=== PATIENT | male | born 1945 | race Hispanic/Latino ===

== ENCOUNTER 2018-02-24 10:28 | Day surgery (SDC) | payer MEDICARE ==
[~2018-02-24 10:28] MED LIST: ANCEF/STERILE WATER 2 GM/20 ML 2 GM/20 ML SYRINGE IV NR; NACL 0.9% 1000 ML 1,000 ML IV SCH
[2018-02-24 11:58] LABS: Basophils # (Auto) 0.1 K/mm3 (0.0-0.1); Basophils % (Auto) 1.4 % (0.0-1.8); Eosinophils # (Auto) 0.8 K/mm3 (0.0-0.4); Eosinophils % (Auto) 9.8 % (0.0-4.3); Hematocrit 34.2 % (35.5-45.6); Hemoglobin 12.1 gm/dl (11.8-15.2); Lymphocytes # (Auto) 1.2 K/mm3 (1.2-5.4); Lymphocytes % (Auto) 15.6 % (13.4-35.0); Mean Corpuscular HGB Conc 36 % (32-34); Mean Corpuscular Hemoglobin 32 pg (28-32); Mean Corpuscular Volume 91 fl (84-94); Monocytes # (Auto) 0.6 K/mm3 (0.0-0.8); Platelet Count 255 K/mm3 (140-440); Red Blood Count 3.77 M/mm3 (3.65-5.03); Red Cell Distribution Width 15.6 % (13.2-15.2)
[2018-02-24 12:02] LABS: INR 0.99 (0.87-1.13)
[2018-02-24 12:03] LABS: Partial Thromboplastin Time 31.7 Sec. (24.2-36.6)
[2018-02-24] MEDS ORDERED: SUBLIMAZE ONE (14:22)
[2018-02-24] MEDS ORDERED: VERSED ONE (14:22)
[2018-02-24] MEDS ORDERED: NACL 0.9% 500 ML 500 ML ONE (14:24)
[2018-02-24] MEDS ORDERED: HEPARIN 10,000 UNITS/10 ML ONE (14:24)
[2018-02-24] MEDS ORDERED: XYLOCAINE 2% INFILTRATI ONE (14:24)
[2018-02-24] MEDS ORDERED: HEPARIN/NS 5000 UNIT/500ML(CATH LAB) 1,000 ML IR ONE (14:24)
[2018-02-24] MEDS ORDERED: ANCEF/STERILE WATER 2 GM/20 ML 0 GM/0 ML SYRINGE IV ONE (14:24)
--- NOTE | 2018-02-24 16:52 | Short Stay Summary ---
Short Stay Documentation Date of service: 02/24/18 - History Principal diagnosis: right common iliac artery aneurysm H&P: obtained from office - Allergies and Medications Current Medications: Allergies EGG BASED SERUM Allergy (Uncoded 02/24/18 10:29) Hives,SWELLING,SHORT OF BREATH Home Medications Medication Instructions Recorded Confirmed Last Taken Type Oxycodone HCl/Acetaminophen 1 each PO Q6HR PRN #20 tablet 02/24/18 Unknown Rx [Percocet 10/325 mg] Active Medications Cefazolin Sodium (Ancef/Sterile Water 2 Gm/20 Ml) 2 gm in 20 mls @ 80 mls/hr IV PREOP NR; Protocol Stop: 02/24/18 23:59 Sodium Chloride (Nacl 0.9% 1000 Ml) 1,000 mls @ 42 mls/hr IV DIRECT MUMTAZ - Brief post op/procedure progress note Date of procedure: 02/24/18 Pre-op diagnosis: right common iliac artery aneurysm. Post-op diagnosis: same Procedure: Diagnostic angiography Anesthesia: local Surgeon: LYNN SNIDER Estimated blood loss: minimal Pathology: none Condition: stable - Disposition Condition at discharge: Good Disposition: DC-01 TO HOME OR SELFCARE Short Stay Discharge Plan Activity: advance as tolerated Weight Bearing Status: Weight Bear as Tolerated Diet: regular Wound: keep clean and dry, per your surgeon's advice Follow up with: ESSENCE GEE MD [Primary Care Provider] - 7 Days Forms: Post Arteriogram Instruct Prescriptions: Oxycodone HCl/Acetaminophen [Percocet 10/325 mg] 1 each PO Q6HR PRN #20 tablet PRN Reason: Pain
--- NOTE | 2018-02-24 16:58 | Operative Report ---
Operative Report Operative Report: Exam: Pelvic angiography and right lower extremity angiography Clinical indication: With a history of prior endovascular aortic aneurysm repair with development of rapid growth in right common iliac artery aneurysm demonstrated on ultrasound Date: 02/24/2018 Procedure: Following an expiration of the risks, benefits and alternatives; written informed consent was obtained. The patient was brought the angiographic suite and placed in supine position on the examination table. Initial ultrasound evaluation of his groin demonstrated a patent right common femoral artery. The patient's right groin was prepped and draped in usual sterile fashion. 1% lidocaine was used for anesthesia. Under ultrasound guidance, the right common femoral artery was cannulated with a 7 cm 21-gauge needle. A 0.018 guidewire was advanced centrally. The needle was removed and a micro-sheath placed. The 0.018 guidewire was exchanged for a 0.035 guidewire and the micro-sheath exchanged for a 5 [place] vascular sheath. The 5 [place] Omni flush catheter was advanced over the guidewire and advanced through the right limb of the previously placed Graft. Contrast was injected through the catheter which demonstrated prompt opacification of the right common iliac artery aneurysm. The origin of the right internal iliac artery was not well identified and multiple obliquities were obtained with additional angiography. Ultimately, an obliquity was obtained which demonstrates origin of the right internal iliac artery. There is greater than 2 cm aneurysmal dilatation of the internal iliac artery is well. The patient's previously placed a stent graft has a lee bottom distally. At this point, the catheters, guidewires and she's were removed and hemostasis achieved using an Angio-Seal arterial closure device. A sterile dressing was then applied. The patient tolerated the procedure well. There were no immediate post procedure complications. Conscious sedation was performed under the guidance of radiologic nursing. Continuous cardiopulmonary monitoring was utilized. Impression: 1) Pelvic angiography and right lower extremity angiography demonstrating aneurysm of the common iliac artery on the right. Additionally and unexpectedly, there is aneurysmal dilatation of the internal iliac artery. The patient will be scheduled for a CTA of the abdomen and pelvis for anatomic localization and scheduled for placement of a bifurcated stent/graft preserved flow into both the external and internal iliac arteries.
[2018-02-24 17:43] VITALS: BP 160/54
== END 2018-02-24 18:07 | disposition home or self-care (01) ==
LOC: CATHLABREC 10:28
PROVIDERS: ATTEND Radiology Diagnostic Radiology
DX: I72.4 Aneurysm of artery of lower extremity (principal); N40.0 Benign prostatic hyperplasia without lower urinary tract symptoms; E78.00 Pure hypercholesterolemia, unspecified; I12.9 Hypertensive chronic kidney disease with stage 1 through stage 4 chronic kidney disease, or unspecified chronic kidney disease; N18.3 Chronic kidney disease, stage 3 (moderate); M19.90 Unspecified osteoarthritis, unspecified site; F41.9 Anxiety disorder, unspecified; M10.9 Gout, unspecified; Z79.01 Long term (current) use of anticoagulants; Z91.012 Allergy to eggs; Z98.49 Cataract extraction status, unspecified eye; Z85.820 Personal history of malignant melanoma of skin; Z87.891 Personal history of nicotine dependence; Z85.46 Personal history of malignant neoplasm of prostate; Z86.73 Personal history of transient ischemic attack (TIA), and cerebral infarction without residual deficits; Z98.890 Other specified postprocedural states
CPT/HCPCS: 36245; 36415; 75710; 80048; 85025; 85610; 85730; 99156; 99157; C1760; C1887; J1644; J2250; J3010; J7040; 76937; J0690; Q9967

== ENCOUNTER 2018-04-19 09:01 | Observation (INO) | payer MEDICARE ==
[~2018-04-19 09:01] MED LIST changes: -NACL 0.9% 1000 ML 1,000 ML IV SCH
[2018-04-19 09:59] LABS: Basophils # (Auto) 0.1 K/mm3 (0.0-0.1); Eosinophils # (Auto) 0.8 K/mm3 (0.0-0.4); Eosinophils % (Auto) 10.3 % (0.0-4.3); Hematocrit 34.6 % (35.5-45.6); Hemoglobin 11.8 gm/dl (11.8-15.2); Lymphocytes # (Auto) 1.2 K/mm3 (1.2-5.4); Lymphocytes % (Auto) 15.2 % (13.4-35.0); Mean Corpuscular HGB Conc 34 % (32-34); Mean Corpuscular Hemoglobin 31 pg (28-32); Mean Corpuscular Volume 90 fl (84-94); Monocytes # (Auto) 0.6 K/mm3 (0.0-0.8); Monocytes % (Auto) 7.6 % (0.0-7.3); Platelet Count 260 K/mm3 (140-440); Red Blood Count 3.86 M/mm3 (3.65-5.03); Red Cell Distribution Width 15.6 % (13.2-15.2)
[2018-04-19] MEDS: NACL 0.9% 1000 ML 1,000 ML IV SCH (10:08)
[2018-04-19 10:11] LABS: Calcium 9.7 mg/dL (8.4-10.2); Partial Thromboplastin Time 33.5 Sec. (24.2-36.6)
[2018-04-19] MEDS ORDERED: HEPARIN/NS 5000 UNIT/500ML(CATH LAB) 1,000 ML IR ONE (10:11)
[2018-04-19] MEDS ORDERED: HEPARIN 10,000 UNITS/10 ML ONE (10:11)
[2018-04-19] MEDS ORDERED: XYLOCAINE 2% INFILTRATI ONE (10:11)
[2018-04-19] MEDS ORDERED: VERSED ONE (10:40)
[2018-04-19] MEDS ORDERED: SUBLIMAZE ONE (10:41)
--- NOTE | 2018-04-19 11:57 | Short Stay Summary ---
Short Stay Documentation Date of service: 04/19/18 - History Principal diagnosis: right renal artery stenosis, malignant hypertension H&P: obtained from office - Allergies and Medications Current Medications: Allergies EGG BASED SERUM Allergy (Uncoded 02/24/18 10:29) Hives,SWELLING,SHORT OF BREATH Home Medications Medication Instructions Recorded Confirmed Last Taken Type Allopurinol 100 mg PO DAILY 04/19/18 04/19/18 04/18/18 History 100mg Atenolol 50 mg PO DAILY 04/19/18 04/19/18 04/18/18 History 50mg Atorvastatin Calcium 20 mg PO QHS 04/19/18 04/19/18 04/18/18 History 20mg Fenofibrate 160 mg PO DAILY 04/19/18 04/19/18 04/18/18 History 160mg Furosemide [Lasix TAB] 20 mg PO DAILY 04/19/18 04/19/18 04/18/18 History 20mg Metoprolol Succinate 50 mg PO DAILY 04/19/18 04/19/18 04/18/18 History 50mg amLODIPine [Norvasc] 5 mg PO DAILY 04/19/18 04/19/18 04/18/18 History 5mg Active Medications Cefazolin Sodium (Ancef/Sterile Water 2 Gm/20 Ml) 2 gm in 20 mls @ 80 mls/hr IV PREOP NR; Protocol Stop: 04/19/18 23:59 Sodium Chloride (Nacl 0.9% 1000 Ml) 1,000 mls @ 42 mls/hr IV DIRECT MUMTAZ Last Admin: 04/19/18 10:08 Dose: 42 mls/hr - Brief post op/procedure progress note Date of procedure: 04/19/18 Pre-op diagnosis: right renal artery stenosis Post-op diagnosis: same Procedure: Right renal artery stent graft placement Anesthesia: local Surgeon: LYNN SNIDER Estimated blood loss: minimal Pathology: none Condition: stable - Disposition Condition at discharge: Good Disposition: DC/TX-02 [id number]-TRM GEN HOSP IP Short Stay Discharge Plan Activity: advance as tolerated Weight Bearing Status: Weight Bear as Tolerated Diet: regular Wound: keep clean and dry, per your surgeon's advice Follow up with: ESSENCE GEE MD [Primary Care Provider] - 7 Days
--- NOTE | 2018-04-19 12:04 | Operative Report ---
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 The patient was brought to the geographic suite placed in supine position on the examination table. Under ultrasound evaluation of the right groin and illustrated a patent right common femoral artery. The patient's right groin was prepped and draped in the usual sterile fashion. 1% lidocaine was used for anesthesia. Under ultrasound guidance the right common femoral artery was cannulated with a 7 cm 21-gauge needle. A 0.018 guidewire was advanced centrally. The needle was removed and a micro-sheath placed. The 0.01 a guidewire was exchanged for 0.035 guidewire and following serial dilation, a 5 Swiss sheath placed in the groin. A 5 Swiss pigtail plus catheter was then advanced over the guidewire to the suprarenal aorta. Angiography was performed using power injection which demonstrated atresia of the left renal artery and than 95% stenosis involving the right renal artery just distal to the ostium. The guidewire was advanced and the pigtail catheter removed. The 5 Swiss sheath was exchanged for a 7.45 cm sheath which was advanced to just below the level of the renal arteries. Given the high degree of stenosis, a variety of catheters were utilized in an attempt to cannulate the right renal artery, ultimately a sauce on the catheter and choice PT guidewire was used to cannulate the renal artery. The choice PT guidewire was exchanged for a 0.035 guidewire was advanced into a intralobar renal artery. Additional angiographic imaging was obtained to the aid of a 7 Swiss guide catheter. Pre-dilation of the stenosis was performed using a 4 mm x 20 mm balloon. Following dilation, a 6 mm x 1.9 cm [place] PBX stent was advanced across the lesion and deployed. The balloon was insufflated 15 [place] [address] the stent. Post stent placement imaging demonstrated reduction of the stenosis from 95% to less than 10% with brisk luminal flow from the aorta into the right renal artery. At this point, the catheters, guidewires and sheaths were removed and hemostasis achieved to the Angio-Seal arterial closure device. A compression dressing was also placed. The patient tolerated the procedure well. There were no immediate post procedure complications. Conscious sedation was performed under the guidance of radiologic nursing. Continuous cardiopulmonary monitoring was utilized. Impression: 1) Aortogram and selective renal angiogram demonstrating atresia of the left renal artery and a 95% stenosis involving the right renal artery just distal to its origin. 2) 2) Treatment of the right renal artery with angioplasty and placement of a stent graft as described with residual less than 10% stenosis.
--- NOTE | 2018-04-19 13:36 | History and Physical Report ---
History of Present Illness Chief complaint: My blood pressure gets high History of present illness: 72 YO Male with Obesity, Malignant Hypertension, LELA S/P Placement of renal artery stent admitted at the request of Dr. Soto for medical management. Pt seen and evaluated upon arrival to his room. Pt denies headache, CP, Fever, chills, NVD, Syncope, dizziness, vertigo, productive cough, or recent ill contacts. No reported nursing events. Past History Past Medical History: hypertension, other (LELA) Past Surgical History: Other (renal artery stent placement.) Social history: , lives with family. denies: smoking, alcohol abuse, prescription drug abuse Family history: hypertension Medications and Allergies Allergies Allergy/AdvReac Type Severity Reaction Status Date / Time EGG BASED SERUM Allergy Hives,SWELLING,SHORT Uncoded 02/24/18 10:29 OF BREATH Home Medications Medication Instructions Recorded Confirmed Last Taken Type Allopurinol 100 mg PO DAILY 04/19/18 04/19/18 04/18/18 History 100mg Atenolol 50 mg PO DAILY 04/19/18 04/19/18 04/18/18 History 50mg Atorvastatin Calcium 20 mg PO QHS 04/19/18 04/19/18 04/18/18 History 20mg Fenofibrate 160 mg PO DAILY 04/19/18 04/19/18 04/18/18 History 160mg Furosemide [Lasix TAB] 20 mg PO DAILY 04/19/18 04/19/18 04/18/18 History 20mg Metoprolol Succinate 50 mg PO DAILY 04/19/18 04/19/18 04/18/18 History 50mg amLODIPine [Norvasc] 5 mg PO DAILY 04/19/18 04/19/18 04/18/18 History 5mg Active Meds: Active Medications Cefazolin Sodium (Ancef/Sterile Water 2 Gm/20 Ml) 2 gm in 20 mls @ 80 mls/hr IV PREOP NR; Protocol Stop: 04/19/18 23:59 Sodium Chloride (Nacl 0.9% 1000 Ml) 1,000 mls @ 50 mls/hr IV DIRECT MUMTAZ Last Admin: 04/19/18 10:08 Dose: 42 mls/hr Review of Systems Constitutional: no weight loss, no weight gain, no fever, no chills Ears, nose, mouth and throat: no ear pain, no ear discharge, no tinnitis, no decreased hearing, no nose pain, no nasal discharge Cardiovascular: no chest pain, no orthopnea, no palpitations, no edema Respiratory: no cough, no cough with sputum, no excessive sputum Gastrointestinal: no abdominal pain, no nausea, no vomiting, no diarrhea, no change in bowel habits Genitourinary Male: no hematuria, no flank pain, no discharge, no urinary frequency, no urinary hesitancy Rectal: no pain, no incontinence, no hemorrhoids Musculoskeletal: no neck stiffness, no neck pain, no shooting arm pain, no hot joints, no morning stiffness Integumentary: no rash, no pruritis, no redness, no wounds, no boils, no bullae , no lesions, no depigmentation, no acne, no color changes Neurological: no paralysis, no weakness, no parathesias, no numbness, no tingling, no seizures, no syncope Psychiatric: no anxiety, no memory loss, no change in sleep habits, no sleep disturbances, no insomnia Endocrine: no cold intolerance, no heat intolerance, no polyphagia, no polyuria , no excessive sweating, no weight change, no proptosis Hematologic/Lymphatic: no easy bruising, no easy bleeding, no lymphadenopathy, no lymphedema Allergic/Immunologic: no urticaria, no allergic rhinitis, no wheezing, no persistent infections, no anaphylaxis, no angioedema Exam - Constitutional Vitals: Temp Pulse Resp BP Pulse Ox 97.6 F 62 20 178/81 97 04/19/18 12:05 04/19/18 13:00 04/19/18 13:00 04/19/18 13:00 04/19/18 13:00 General appearance: Present: no acute distress, well-nourished - EENT Eyes: Present: PERRL ENT: hearing intact, clear oral mucosa - Neck Neck: Present: supple, normal ROM - Respiratory Respiratory effort: normal Respiratory: bilateral: CTA - Cardiovascular Heart Sounds: Present: S1 & S2. Absent: rub, click - Extremities Extremities: pulses symmetrical, No edema Peripheral Pulses: within normal limits - Abdominal General gastrointestinal: Present: soft, non-tender, non-distended, normal bowel sounds Male genitourinary: Present: normal - Integumentary Integumentary: Present: clear, warm, dry - Musculoskeletal Musculoskeletal: gait normal, strength equal bilaterally - Psychiatric Psychiatric: appropriate mood/affect, intact judgment & insight - Neurologic Neurologic: CNII-XII intact, moves all extremities Results - Labs CBC & Chem 7: 04/19/18 09:50 04/19/18 09:50 Labs: Abnormal lab results 04/19/18 04/19/18 Range/Units 09:50 09:50 Hct 34.6 L (35.5-45.6) % RDW 15.6 H (13.2-15.2) % [place] % (Auto) 7.6 H (0.0-7.3) % Eos % (Auto) 10.3 H (0.0-4.3) % Eos # 0.8 H (0.0-0.4) K/mm3 BUN 23 H (9-20) mg/dL Glucose 116 H (75-100) mg/dL Assessment and Plan - Patient Problems (1) Renal artery stenosis Current Visit: Yes Status: Acute Plan to address problem: S/P Stent placement, Vascular surgery consulted, (2) Hypertension Current Visit: Yes Status: Acute Qualifiers: Hypertension type: essential hypertension Qualified Code(s): I10 - Essential (primary) hypertension Plan to address problem: monitor bp q shift, hydralazine prn. supportive care. (3) Obesity Current Visit: Yes Status: Acute Plan to address problem: Balanced diet, increased physical activity at discharge. (4) DVT prophylaxis Current Visit: Yes Status: Acute Plan to address problem: SCD to BLE while in bed.
[2018-04-19] MEDS ORDERED: TYLENOL PO PRN (13:37)
[2018-04-19] MEDS ORDERED: SODIUM CHLORIDE FLUSH SYRINGE 10 ML IV PRN (13:37)
[2018-04-19] MEDS ORDERED: ZOFRAN IV PRN (13:37)
[2018-04-19] MEDS ORDERED: PROVENTIL IH PRN (13:37)
[2018-04-19] MEDS ORDERED: CATAPRES PO PRN ×2 (14:44→14:47)
--- NOTE | 2018-04-19 15:05 | Progress Note ---
Assessment and Plan s/p right renal artery stent placement Hypertension Continue routine post op management. We will obtain a 12 lead ECG. Subjective Date of service: 04/19/18 Principal diagnosis: right renal artery stenosis, malignant hypertension Interval history: Patient is s/p right renal artery stent placement. He denies chest pain and shortness of breath. No distress noted. Objective Vital Signs Temp Pulse Resp BP BP Pulse Ox 04/19/18 15:00 97.9 F 57 L 18 178/77 97 04/19/18 14:51 97.9 F 58 L 20 189/152 97 04/19/18 14:30 57 L 20 125/71 95 04/19/18 14:00 56 L 18 139/61 97 04/19/18 13:30 58 L 18 171/61 97 04/19/18 13:00 62 20 178/81 97 04/19/18 12:45 64 20 177/63 98 04/19/18 12:33 64 20 147/69 95 04/19/18 12:10 60 18 174/65 96 04/19/18 12:05 97.6 F 58 L 20 190/69 94 04/19/18 10:41 98.1 F 62 16 182/67 99 - Physical Examination General: No Apparent Distress HEENT: Positive: PERRL Cardiac: Positive: Reg Rate and Rhythm Lungs: Positive: Decreased Breath Sounds Neuro: Positive: Grossly Intact Extremities: Absent: edema - Labs and Meds Coagulation 04/19/18 Range/Units 09:50 PT 13.7 (12.2-14.9) Sec. INR 1.00 (0.87-1.13) APTT 33.5 (24.2-36.6) Sec. CBC 04/19/18 Range/Units 09:50 WBC 7.9 (4.5-11.0) K/mm3 RBC 3.86 (3.65-5.03) M/mm3 Hgb 11.8 (11.8-15.2) gm/dl Hct 34.6 L (35.5-45.6) % Plt Count 260 (140-440) K/mm3 Lymph # 1.2 (1.2-5.4) K/mm3 [place] # 0.6 (0.0-0.8) K/mm3 Eos # 0.8 H (0.0-0.4) K/mm3 Baso # 0.1 (0.0-0.1) K/mm3 Comprehensive Metabolic Panel 04/19/18 Range/Units 09:50 Sodium 139 (137-145) mmol/L Potassium 4.3 (3.6-5.0) mmol/L Chloride 100.0 (98-107) mmol/L Carbon Dioxide 28 (22-30) mmol/L BUN 23 H (9-20) mg/dL Creatinine 1.3 (0.8-1.5) mg/dL Glucose 116 H (75-100) mg/dL Calcium 9.7 (8.4-10.2) mg/dL
[2018-04-19] MEDS ORDERED: APRESOLINE IV ONE (19:47)
[2018-04-19] MEDS ORDERED: APRESOLINE IV PRN (19:48)
[2018-04-19] MEDS: SODIUM CHLORIDE FLUSH SYRINGE 10 ML IV SCH (22:30)
[2018-04-20] MEDS: NACL 0.9% 1000 ML 1,000 ML IV SCH (03:30)
[2018-04-20] MEDS: SODIUM CHLORIDE FLUSH SYRINGE 10 ML IV SCH (09:26)
[2018-04-20] MEDS ORDERED: CATAPRES PO NR (09:56)
[2018-04-20] MEDS ORDERED: TENORMIN PO SCH (10:00)
[2018-04-20] MEDS ORDERED: TRICOR PO SCH (10:00)
[2018-04-20] MEDS ORDERED: ZYLOPRIM PO SCH (10:00)
[2018-04-20] MEDS ORDERED: NON-FORMULARY (Fenofibrate [Fenofibrate] 160 MG) PO SCH (10:00)
[2018-04-20] MEDS ORDERED: LASIX PO SCH (10:00)
[2018-04-20] MEDS ORDERED: TOPROL XL PO SCH (10:00)
[2018-04-20] MEDS ORDERED: NORVASC PO SCH (10:00)
--- NOTE | 2018-04-20 11:22 | Progress Note ---
Assessment and Plan s/p right renal artery stent placement Hypertension Continue routine post op management. Stable cardiac calle. Once discharged, patient advised to f/u with Dr Zambrano within 5-7 days. Subjective Date of service: 04/20/18 Principal diagnosis: right renal artery stenosis, malignant hypertension Interval history: Patient is resting in bed comfortably. He denies chest pain and shortness of breath. Objective Vital Signs Temp Pulse Pulse Resp BP BP Pulse Ox 04/20/18 10:11 100 04/20/18 10:00 66 04/20/18 09:25 63 189/79 04/20/18 07:39 97.8 F 63 20 189/79 97 04/20/18 07:37 94 04/20/18 02:17 97.6 F 65 16 154/59 94 04/20/18 01:54 61 16 97 04/19/18 22:29 61 186/80 04/19/18 21:46 97 04/19/18 19:35 97.6 F 61 16 186/82 96 04/19/18 15:00 97.9 F 57 L 18 178/77 97 04/19/18 14:51 97.9 F 58 L 20 189/152 97 04/19/18 14:30 57 L 20 125/71 95 04/19/18 14:00 56 L 18 139/61 97 04/19/18 13:30 58 L 18 171/61 97 04/19/18 13:00 62 20 178/81 97 04/19/18 12:45 64 20 177/63 98 04/19/18 12:33 64 20 147/69 95 04/19/18 12:10 60 18 174/65 96 04/19/18 12:05 97.6 F 58 L 20 190/69 94 - Physical Examination General: No Apparent Distress HEENT: Positive: PERRL Cardiac: Positive: Reg Rate and Rhythm Lungs: Positive: Decreased Breath Sounds Neuro: Positive: Grossly Intact Extremities: Absent: edema
[2018-04-20 15:02] VITALS: BP 146/60
--- NOTE | 2018-04-20 15:16 | Progress Note ---
Assessment and Plan Pt s/p R renal artery angioplasty with stent placement. Pt doing well today, wants to go home. D/c instructions regarding angioplasty discussed. Pt to call for f/u appt. - Patient Problems (1) Renal artery stenosis Current Visit: Yes Status: Acute Subjective Date of service: 04/20/18 Principal diagnosis: right renal artery stenosis, malignant hypertension Interval history: Pt awake and alert without complaint at present. Objective - Constitutional Vitals: Vital Signs - 12hr 04/20/18 04/20/18 04/20/18 07:37 07:39 09:25 Temperature 97.8 F Pulse Rate 63 63 Respiratory 20 Rate Blood Pressure 189/79 189/79 O2 Sat by Pulse 94 97 Oximetry 04/20/18 04/20/18 04/20/18 10:00 10:11 13:16 Temperature 97.8 F Pulse Rate 66 59 L Respiratory 18 Rate Blood Pressure 146/60 O2 Sat by Pulse 100 93 Oximetry General appearance: Present: no acute distress - EENT Eyes: EOM intact ENT: hearing intact - Neck Neck: supple - Respiratory Respiratory effort: normal Extremities: no ischemia, normal temperature, abnormal (right groin pressure bandage removed. Groin soft and non-tender without ecchymosis, erythema, or drainage appreciated.) - Labs CBC & Chem 7: 04/19/18 09:50 04/19/18 09:50
--- NOTE | 2018-04-20 17:27 | Discharge Summary ---
Providers - Providers Date of Admission: 04/19/18 13:37 Date of discharge: 04/20/18 Attending physician: IVET LOPEZ 04/19/18 13:28 Consult to Physician [CONS] Routine Comment: s/p right renal artery stenting Consulting Provider: LEYDI LANDIN Physician Instructions: Pt. of Dr. Aparicio Reason For Exam: cardiac management Primary care physician: ESSENCE GEE MD Hospitalization Reason for admission: right renal artery stenosis/malignant hypertension Condition: Good Procedures: Right renal artery stenosis; status post right renal artery stent placement Hospital course: Very pleasant 72-year-old male patient with significant past medical history of hypertension and right renal artery stenosis was evaluated by vascular underwent right renal stent placement. Patient had malignant hypertension with very high blood pressures, admitted to the hospital symptomatically managed, all his home antihypertensives resumed Patient's blood pressures brought to reasonable control, Vascular the evaluated the patient today, patient feels better, cleared for discharge and follow up with them in the office per schedule Patient was also evaluated by middleware systems architect, medications were optimized, symptoms significantly improved Today he is comfortable in bed no new complaints Vital signs stable, Physical examination is unremarkable Ambulatory and tolerating oral nutrition Cardiology cleared for discharge and follow-up with him in the office for further evaluation Patient is hemodynamically and clinically stable at discharge Discharge diagnosis; --Right renal artery stenosis; status post stent placement --Malignant hypertension; moderate control --Dyslipidemia; stable on lipid-lowering medications --History of gout; continue allopurinol Disposition: DC- TO HOME OR SELFCARE Time spent for discharge: 32 min Core Measure Documentation - Palliative Care Palliative Care/ Comfort Measures: Not Applicable - Core Measures Any of the following diagnoses?: none Exam - Constitutional Vitals: Temp Pulse Resp BP Pulse Ox 97.8 F 59 L 18 146/60 93 04/20/18 13:16 04/20/18 13:16 04/20/18 13:16 04/20/18 13:16 04/20/18 13:16 General appearance: Present: no acute distress, well-nourished, obese - EENT Eyes: Present: PERRL, EOM intact - Neck Neck: Present: supple, normal ROM - Respiratory Respiratory effort: normal Respiratory: negative: rales, rhonchi, wheezing - Cardiovascular Rhythm: regular Heart Sounds: Present: S1 & S2 - Extremities Extremities: no ischemia, No edema - Abdominal General gastrointestinal: Present: soft, non-tender, non-distended, normal bowel sounds - Integumentary Integumentary: Present: clear, warm - Musculoskeletal Musculoskeletal: strength equal bilaterally - Psychiatric Psychiatric: appropriate mood/affect, cooperative - Neurologic Neurologic: CNII-XII intact, moves all extremities Plan Activity: advance as tolerated, fall precautions Diet: other (cardiac diet) Additional Instructions: Strongly advised to comply with medications, diet and follow-up visits. Follow-up with the vascular, cardiology, primary care physician per schedule Follow up with: ESSENCE GEE MD [Primary Care Provider] - 7 Days LYNN SNIDER MD [Staff Physician] - 7 Days SOREN APARICIO MD [Staff Physician] - 7 Days
== END 2018-04-20 18:15 | disposition home or self-care (01) ==
LOC: CATHLABREC 09:01 → 2B-ACE 13:37
PROVIDERS: ADMIT Internal Medicine; ATTEND Internal Medicine
DX: I70.1 Atherosclerosis of renal artery (principal); I10 Essential (primary) hypertension; E66.9 Obesity, unspecified; I82.409 Acute embolism and thrombosis of unspecified deep veins of unspecified lower extremity; I71.4 Abdominal aortic aneurysm, without rupture
CPT/HCPCS: 36245; 36251; 36415; 37236; 76937; 80048; 85025; 85610; 85730; 93005; 93010; 96374; A9270; C1725; C1751; C1769; C1887; C1894; G0378; J0360; J1644; J2250; J3010; J7030; Q9967